=== PATIENT | female | born 1930 | race Asian ===

== ENCOUNTER 2016-10-29 18:46 | Inpatient (IN) | payer MEDICARE, OTHER ==
[~2016-10-29] VITALS: Ht 149.9 cm; Wt 50.0 kg
[~2016-10-29 18:46] MED LIST: ALLO100T PO; ASPI-556 PO; ATOR40TA28 PO; CLOP75 PO; GABA-529 PO; LOSA50TA37 PO; METO25 PO; OMEP10CA2 PO; OMEP20 PO
[2016-10-29 20:59] LABS: BASOPHILS # (AUTO) 0.03 K/uL (0.00-0.20); BASOPHILS % (AUTO) 0.3 % (0.0-2.0); EOSINOPHILS # (AUTO) 0.49 K/uL (0.00-0.70); EOSINOPHILS % (AUTO) 4.17 % (1.0-6.0); HEMATOCRIT 45.3 % (36-46); HEMOGLOBIN 14.6 g/dL (12.0-16.0); LYMPHOCYTES # (AUTO) 1.7 K/uL (1.0-4.8); LYMPHOCYTES % (AUTO) 14.7 % (22.0-44.0); MEAN CORPUSCULAR HEMOGLOBIN 30.3 pg (26.0-34.0); MEAN CORPUSCULAR HGB CONC 32.2 G/dL (31.0-37.0); MEAN CORPUSCULAR VOLUME 94 fL (80-100); MONOCYTES # (AUTO) 1.1 K/uL (0.1-1.0); NEUTROPHILS # (AUTO) 8.4 K/uL (1.8-7.7); NEUTROPHILS % (AUTO) 71.8 % (40.0-70.0); PLATELET COUNT (AUTO) 197 K/uL (150-450); RED BLOOD CELL COUNT(AUTO) 4.82 MIL/uL (4.00-5.20); RED CELL DISTRIBUTION WIDTH 14.5 % (11.5-14.5); WHITE BLOOD COUNT (AUTO) 11.7 K/uL (4.5-11.0)
[2016-10-29 21:05] LABS: CALCIUM, TOTAL 10.2 mg/dL (8.8-10.5); CREATININE 1.31 mg/dL (0.60-1.30); POTASSIUM 4.3 mmol/L (3.5-5.1)
[2016-10-29] MEDS ORDERED: BUPIVACAINE HCL/PF 0.5% 10 ML VIAL SQ ONE (22:00)
[2016-10-29] MEDS ORDERED: INSULIN ASPART 100 UNITS/ML SQ PRN (22:45)
[2016-10-29] MEDS ORDERED: ACETAMINOPHEN 325 MG TABLET PO PRN (22:45)
[2016-10-29] MEDS ORDERED: SODIUM CHLORIDE 0.45% 1,000 ML IV ONE (22:45)
[2016-10-29] MEDS ORDERED: MAGNESIUM HYDROXIDE SUSPENSION 30 ML UDCUP PO PRN (22:45)
[2016-10-29] MEDS ORDERED: DEXTROSE 50%-WATER 25 GM/50 ML SYRINGE IVP PRN (22:45)
[2016-10-29] MEDS ORDERED: BUPIVACAINE HCL/PF 0.25% 10 ML VIAL SQ ONE (23:15)
[2016-10-29] MEDS ORDERED: BACITRACIN 0.9 GM PACKET OINTMENT TP ONE (23:30)
[2016-10-29] MEDS ORDERED: CefTRIAXone 1 GM/DEXTROSE 50 ML IV ONE (23:45)
[2016-10-29] MEDS: METOPROLOL TARTRATE 25 MG TABLET PO SCH (23:48)
[2016-10-30] VITALS (7 sets, daily range): BP systolic 145–184; BP diastolic 69–97
[2016-10-30] MEDS: HEPARIN SODIUM,PORCINE 5,000 UNITS/ML VIAL SQ SCH ×4 (01:56→23:48)
[2016-10-30 06:08] LABS: GLUCOSE,POINT OF CARE 128 MG/DL (70-110)
[2016-10-30] MEDS: ASPIRIN 81 MG CHEWABLE TABLET PO SCH (08:13)
[2016-10-30] MEDS: METOPROLOL TARTRATE 25 MG TABLET PO SCH ×2 (08:13→20:24)
[2016-10-30] MEDS: DOCUSATE SODIUM 100 MG CAPSULE PO SCH ×2 (08:13→20:24)
[2016-10-30] MEDS: PANTOPRAZOLE SODIUM 40 MG DR TABLET PO SCH (08:14)
[2016-10-30] MEDS ORDERED: ALBUTEROL SULFATE 2.5 MG/0.5 ML NEB SOLUTION NEB PRN (11:00)
[2016-10-30] MEDS: IPRATROPIUM BROMIDE 0.5 MG/2.5 ML NEB SOLUTION NEB PRN ×2 (12:03→15:38)
[2016-10-30 12:07] LABS: GLUCOSE,POINT OF CARE 97 MG/DL (70-110)
[2016-10-30] MEDS: ALBUTEROL SULFATE 2.5 MG/0.5 ML NEB SOLUTION NEB PRN (15:39)
[2016-10-30 17:27] LABS: GLUCOSE,POINT OF CARE 117 MG/DL (70-110)
[2016-10-30] MEDS: RisperiDONE 0.5 MG TABLET PO SCH (20:24)
[2016-10-30] MEDS: ATORVASTATIN CALCIUM 20 MG TABLET PO SCH (20:24)
[2016-10-30 21:43] LABS: GLUCOSE,POINT OF CARE 134 MG/DL (70-110)
[2016-10-31 04:00] VITALS: BP 137/62
[2016-10-31 07:08] LABS: GLUCOSE,POINT OF CARE 124 MG/DL (70-110)
[2016-10-31 08:50] VITALS: BP 147/65
[2016-10-31 09:21] LABS: GLUCOSE,POINT OF CARE 178 MG/DL (70-110)
[2016-10-31] MEDS: ASPIRIN 81 MG CHEWABLE TABLET PO SCH (09:33)
[2016-10-31] MEDS: PANTOPRAZOLE SODIUM 40 MG DR TABLET PO SCH (09:33)
[2016-10-31] MEDS: METOPROLOL TARTRATE 25 MG TABLET PO SCH ×2 (09:33→20:08)
[2016-10-31] MEDS: DOCUSATE SODIUM 100 MG CAPSULE PO SCH ×2 (09:33→20:08)
[2016-10-31] MEDS: HEPARIN SODIUM,PORCINE 5,000 UNITS/ML VIAL SQ SCH ×3 (09:33→23:31)
[2016-10-31] MEDS: MULTIVITAMINS WITH MINERALS, THERAPEUTIC TABLET PO SCH (09:34)
[2016-10-31 10:58] LABS: HEMATOCRIT 42.3 % (36-46); HEMOGLOBIN 13.9 g/dL (12.0-16.0); MEAN CORPUSCULAR HEMOGLOBIN 30.7 pg (26.0-34.0); MEAN CORPUSCULAR HGB CONC 32.9 G/dL (31.0-37.0); MEAN CORPUSCULAR VOLUME 93 fL (80-100); PLATELET COUNT (AUTO) 198 K/uL (150-450); RED BLOOD CELL COUNT(AUTO) 4.54 MIL/uL (4.00-5.20); RED CELL DISTRIBUTION WIDTH 14.7 % (11.5-14.5); WHITE BLOOD COUNT (AUTO) 10.9 K/uL (4.5-11.0)
[2016-10-31] MEDS: HYDROCODONE/ACETAMINOPHEN 5-325 MG TABLET PO PRN ×2 (10:58→20:45)
[2016-10-31 11:03] LABS: CALCIUM, TOTAL 8.9 mg/dL (8.8-10.5); CREATININE 1.11 mg/dL (0.60-1.30); POTASSIUM 4.1 mmol/L (3.5-5.1)
[2016-10-31] MEDS: IPRATROPIUM BROMIDE 0.5 MG/2.5 ML NEB SOLUTION NEB PRN (11:07)
[2016-10-31] MEDS: ALBUTEROL SULFATE 2.5 MG/0.5 ML NEB SOLUTION NEB PRN (11:07)
[2016-10-31 11:09] VITALS: BP 145/72
[2016-10-31 11:48] LABS: GLUCOSE,POINT OF CARE 130 MG/DL (70-110)
[2016-10-31 12:47] LABS: BASOPHILS % (MANUAL) 1 % (0-2); EOSINOPHILS % (MANUAL) 3 % (1-6); LYMPHOCYTES % (MANUAL) 18 % (22-44); TOTAL CELLS COUNTED 100
[2016-10-31 15:53] LABS: APPEARANCE,URINE CLEAR (CLEAR); GLUCOSE, URINE (UA) NEGATIVE (NEGATIVE); KETONES,URINE NEGATIVE (NEGATIVE); LEUKOCYTE ESTERASE ,URINE MODERATE (NEGATIVE); OCCULT BLOOD,URINE NEGATIVE (NEGATIVE); PROTEIN,URINE TRACE (NEGATIVE)
[2016-10-31 15:54] VITALS: BP 144/73
[2016-10-31 15:55] LABS: ADD UA MICROSCOPIC YES
[2016-10-31 16:10] LABS: RBC,URINE None Seen /HPF (0-2); SQUAMOUS EPITHELIAL CELL,UR Few /LPF (None Seen); TRANSITIONAL EPI CELLS,URINE Few /LPF (None Seen)
[2016-10-31 17:43] LABS: GLUCOSE,POINT OF CARE 118 MG/DL (70-110)
[2016-10-31 19:21] VITALS: BP 133/76
[2016-10-31] MEDS: ATORVASTATIN CALCIUM 20 MG TABLET PO SCH (20:08)
[2016-10-31] MEDS: RisperiDONE 0.5 MG TABLET PO SCH (20:08)
[2016-10-31 21:22] LABS: GLUCOSE,POINT OF CARE 129 MG/DL (70-110)
[2016-10-31 23:38] VITALS: BP 140/72
[2016-11-01 05:35] VITALS: BP 151/74
[2016-11-01 07:17] LABS: GLUCOSE,POINT OF CARE 117 MG/DL (70-110)
[2016-11-01 07:30] VITALS: BP 163/85
[2016-11-01] MEDS: ASPIRIN 81 MG CHEWABLE TABLET PO SCH (07:57)
[2016-11-01] MEDS: MULTIVITAMINS WITH MINERALS, THERAPEUTIC TABLET PO SCH (07:57)
[2016-11-01] MEDS: HEPARIN SODIUM,PORCINE 5,000 UNITS/ML VIAL SQ SCH ×2 (07:57→16:30)
[2016-11-01] MEDS: METOPROLOL TARTRATE 25 MG TABLET PO SCH (07:57)
[2016-11-01] MEDS: PANTOPRAZOLE SODIUM 40 MG DR TABLET PO SCH (07:57)
[2016-11-01] MEDS: DOCUSATE SODIUM 100 MG CAPSULE PO SCH (07:57)
[2016-11-01 11:30] VITALS: BP 158/78
[2016-11-01 11:48] LABS: GLUCOSE COMMENT 1 Received Meds; GLUCOSE,POINT OF CARE 147 MG/DL (70-110)
[2016-11-01] MEDS ORDERED: HEPA500017 SQ (14:00)
[2016-11-01] MEDS ORDERED: AUD NEB (14:00)
[2016-11-01] MEDS ORDERED: INSNOV SQ (14:00)
[2016-11-01] MEDS ORDERED: HYDR-309 PO (14:00)
[2016-11-01] MEDS ORDERED: MULT1CAP32 PO (14:00)
[2016-11-01] MEDS ORDERED: PANT40TA25 PO (14:00)
[2016-11-01] MEDS ORDERED: DSS100 PO (14:00)
[2016-11-01] MEDS ORDERED: ACET-784 PO (14:00)
[2016-11-01] MEDS ORDERED: IPRNEB IH (14:00)
[2016-11-01] MEDS ORDERED: MOM30 PO (14:00)
[2016-11-01] MEDS ORDERED: RISP.5 PO (14:00)
[2016-11-01 15:20] VITALS: BP 153/74
[2016-11-01 17:07] LABS: GLUCOSE,POINT OF CARE 115 MG/DL (70-110)
== END 2016-11-01 18:00 | disposition home or self-care (01) | DRG 133 ==
LOC: EMS 19:05 → 6N 22:30
PROVIDERS: ADMIT Internal Medicine; ATTEND Internal Medicine
PROC: 0HQ1XZZ Repair Face Skin, External Approach (ICD-10-PCS; principal; 2016-10-29)
PROC: 09QKXZZ Repair Nasal Mucosa and Soft Tissue, External Approach (ICD-10-PCS; 2016-10-29)
DX: S02.40FA Zygomatic fracture, left side, initial encounter for closed fracture (principal); E43 Unspecified severe protein-calorie malnutrition; T79.7XXA Traumatic subcutaneous emphysema, initial encounter; S01.81XA Laceration without foreign body of other part of head, initial encounter; E11.8 Type 2 diabetes mellitus with unspecified complications; F03.90 Unspecified dementia, unspecified severity, without behavioral disturbance, psychotic disturbance, mood disturbance, and anxiety; R62.7 Adult failure to thrive; I25.10 Atherosclerotic heart disease of native coronary artery without angina pectoris; E11.9 Type 2 diabetes mellitus without complications; I10 Essential (primary) hypertension; J45.909 Unspecified asthma, uncomplicated; M41.9 Scoliosis, unspecified; M47.9 Spondylosis, unspecified; R29.6 Repeated falls; W19.XXXA Unspecified fall, initial encounter; R26.2 Difficulty in walking, not elsewhere classified; Z86.73 Personal history of transient ischemic attack (TIA), and cerebral infarction without residual deficits; I25.2 Old myocardial infarction; Z91.81 History of falling; Y93.89 Activity, other specified; Y92.89 Other specified places as the place of occurrence of the external cause; Y99.8 Other external cause status
CPT/HCPCS: 12011; 70450; 70486; 72125; 82962; 85007; 87086; 94640; 96360; 97116; 97161; 97530; 99285; J0696; J1644; J3490